=== PATIENT | female | born 1945 | race Asian ===

== ENCOUNTER 2021-01-28 18:06 | Emergency (ER) | payer OTHER ==
[~2021-01-28] VITALS: Ht 157.5 cm; Wt 47.6 kg
[~2021-01-28 18:06] MED LIST: CATAPRES-TTS-2 TD; CYAN10009 IM; DONE5TAB PO; GUAIFENESIN DM PO; HYDR25TA57 PO; MEGE40TA32 PO; NORVASC PO; OLAN2.5T2 PO; RISP1TAB PO; RISP25IN IM; RISP2TAB2 PO
[2021-01-28 18:41] LABS: PLATELET COUNT 201 K/uL (152-353)
[2021-01-28 19:05] LABS: POTASSIUM 4.4 mmol/L (3.6-5.2)
[2021-01-28 19:25] VITALS: BP 156/92; TEMP 97.6
[2021-01-28] MEDS ORDERED: PHENYTOIN EX100 MG PO (21:43)
[2021-01-28] MEDS ORDERED: CLOP75TA2 PO (21:45)
[2021-01-28] MEDS ORDERED: ZYPREXA ZYDI5 MG PO (21:47)
[2021-02-01] MEDS ORDERED: DEPAKOTE DR PO (02:14)
[2021-02-01] MEDS ORDERED: LEXAPRO20 MG PO (02:15)
[2021-02-01] MEDS ORDERED: ATEN50TA36 PO (02:16)
[2021-02-01] MEDS ORDERED: LIPITOR20 MG PO (02:17)
[2021-02-01] MEDS ORDERED: BACLOFEN10 MG PO (02:18)
[2021-02-01] MEDS ORDERED: EQ STOOL SOFTE100 MG PO (02:19)
[2021-02-01] MEDS ORDERED: FURO20TA67 PO (02:20)
[2021-02-01] MEDS ORDERED: GABA400C2 PO (02:21)
[2021-02-01] MEDS ORDERED: MIRALAX17 GM PO (02:22)
[2021-02-01] MEDS ORDERED: ANTI-FUNGAL12 EX (02:24)
[2021-02-01] MEDS ORDERED: [UNRECOGNIZED DRUG - OTHER] PO (02:25)
[2021-02-01] MEDS ORDERED: GUAIFENESIN E1200 MG PO (02:28)
[2021-02-01] MEDS ORDERED: HYDROCODONE BIT1 TAB PO (02:33)
[2021-02-01] MEDS ORDERED: ROWEEPRA XR500 MG PO (02:34)
[2021-02-01] MEDS ORDERED: MEGESTROL AC40 MG/ML PO (02:34)
[2021-02-01] MEDS ORDERED: METF500T PO (02:35)
[2021-02-01] MEDS ORDERED: MULTIVITAMI2 PO (02:36)
[2021-02-01] MEDS ORDERED: EFFER-K10 MEQ PO (02:37)
[2021-02-01] MEDS ORDERED: [UNRECOGNIZED DRUG - CODE] PO (02:38)
[2021-02-01] MEDS ORDERED: ZINC220C4 PO (02:39)
[2021-02-01] MEDS ORDERED: VENTOLIN INH (02:45)
[2021-02-01] MEDS ORDERED: TYLENOL325 MG PO (02:46)
[2021-02-01] MEDS ORDERED: MAGNSUS68 PO (02:47)
[2021-02-01] MEDS ORDERED: LEXAPRO10 MG PO (02:55)
[2021-02-01] MEDS ORDERED: DIVA250T2 PO (02:57)
== END 2021-01-28 19:25 | disposition still patient (30) ==
LOC: ED 18:06
PROVIDERS: Emergency Medicine Emergency Medical Services
DX: R45.851 Suicidal ideations (principal); F20.0 Paranoid schizophrenia; Z11.52 Encounter for screening for COVID-19; Z04.6 Encounter for general psychiatric examination, requested by authority
CPT/HCPCS: 36415; 80053; 85027; 87635; 93005; 99283; U0003